=== PATIENT | male | born 1975 ===

== ENCOUNTER 2016-05-19 00:23 | Emergency (ER) | payer MEDICARE, MEDICAID ==
[2016-05-19 00:30] VITALS: BP 121/69; PULSE 91; RESP 16; TEMP 97.9; O2SAT 96
--- NOTE | 2016-05-19 00:34 | ED PDOC ---
HPI: General Adult Time Seen by Provider: 05/19/16 00:34 Chief Complaint (Nursing): Medical Clearance Chief Complaint (Provider): clearance History Per: Patient Additional Complaint(s): Patient presents to ED in police custody for medical and psychiatric clearance prior to incarceration. Patient complains of neck and back pain upon arrival which is chronic in nature. He denies any suicidal or homicidal ideation. Patient denies any acute bowel or bladder dysfunction. Past Medical History Reviewed: Historical Data, Nursing Documentation, Vital Signs Vital Signs: Last Vital Signs Temp 97.9 F 05/19/16 00:27 Pulse 91 H 05/19/16 00:27 Resp 16 05/19/16 00:27 BP 121/69 05/19/16 00:27 Pulse Ox 96 05/19/16 00:58 - Medical History PMH: Back Problems, Bipolar Disorder, Hepatitis (C) - Surgical History Surgical History: Tonsillectomy - Family History Family History: States: No Known Family Hx - Immunization History Hx Tetanus Toxoid Vaccination: Yes (as of 1 year ago) - Home Medications Home Medications: Ambulatory Orders Medication Instructions Recorded Naproxen [Naprosyn] 500 mg PO BID PRN #15 tablet 09/06/15 - Allergies Allergies/Adverse Reactions: Allergies Allergy/AdvReac Type Severity Reaction Status Date / Time No Known Allergies Allergy Verified 02/22/16 14:20 Review of Systems ROS Statement: Except As Marked, All Systems Reviewed And Found Negative Musculoskeletal: Positive for: Neck Pain, Back Pain, Other (history of chronic pain) Psych: Negative for: Suicidal ideation Physical Exam - Reviewed Nursing Documentation Reviewed: Yes Vital Signs Reviewed: Yes - Physical Exam Appears: Positive for: Well Skin: Negative for: Rash Eye Exam: Positive for: Normal appearance, EOMI, PERRL Neck: Positive for: Pain On Movement Of Neck Cardiovascular/Chest: Positive for: Regular Rate, Rhythm Respiratory: Positive for: Normal Breath Sounds Back: Positive for: Vertebral Tenderness (lumba region) Neurologic/Psych: Positive for: Alert, Oriented - ECG O2 Sat by Pulse Oximetry: 96 Pulse Ox Interpretation: Normal Medical Decision Making Medical Decision Makin40 year old male here for medical and psychiatric clearance Plan: Crisis eval PO motrin for pain As per crisis counselor and psychiatrist special education case manager, Dr. Barnes, he does not meet criteria for admission and is stable for discharge into police custody. Disposition - Clinical Impression Clinical Impression: Adjustment disorder, Chronic pain - Patient ED Disposition Is Patient to be Admitted: No Counseled Patient/Family Regarding: Diagnosis, Need For Followup - Disposition Referrals: LTAC, [facility] within [facility] [Outside] Disposition: Discharged/Transfer to Law Enforcement Disposition Time: 01:52 Condition: STABLE Additional Instructions: Patient is medically and psychiatrically stable for incarceration Instructions: Mood Disorders (ED), Chronic Pain (ED)
== END 2016-05-19 02:31 ==
LOC: H.ER 00:23
DX: M54.2 Cervicalgia (principal); M54.9 Dorsalgia, unspecified; G89.29 Other chronic pain; F31.9 Bipolar disorder, unspecified; B19.20 Unspecified viral hepatitis C without hepatic coma; F43.20 Adjustment disorder, unspecified